=== PATIENT | female | born 2000 | race Caucasian/White ===

== ENCOUNTER 2023-08-18 23:17 | Emergency (ER) | payer BC, SELFPAY ==
[2023-08-18 23:22] VITALS: BP 120/74
[2023-08-18] MEDS: MOTRIN 600 MG PO (23:30)
[2023-08-19 02:06] VITALS: BMI 18.9
[2023-08-19 02:09] VITALS: BP 90/59
[2023-08-19 02:10] VITALS: BP 90/59
--- NOTE | 2023-08-19 02:55 | ED.GENMED ---
History of Present Illness
<EDWAR Wade - Last Filed: 08/19/23 03:02>
General
Chief Complaint: Fever
Source: patient and family
Exam Limitations: none
Time Seen by Provider: 08/19/23 02:37
Nursing documentation reviewed up to this point in time: agreed with
Travel History
Have you had any contact with someone who has COVID-19?: No
Do you have any symptoms of coronavirus? Fever > 100 degrees, chills, cough, shortness of breath, sore throat, loss of taste or smell, muscle aches, or headache?: No
History of Present Illness
History of Present Illness:
patient is a 23 y/o female with PMH of asthma presenting for fever x 3 days. patient admits that fever was noted to be at tmax earlier today at 105. Patient tried advil and over the counter cold medicine that gave temporary relief. Patient has
associated nasal congestion. patient states that she will produce yellow and blood tinged nasal discharge. Patient admits to decreased appetite. Patient admits to cough with associated sputum production. patient admits to chills. Patient denies
abdominal pain, CP. Patient admits that she went to the urgent care yesterday where she was tested for covid and flu which both were negative. Patient was started on a z pack yesterday. Patient has not found relief with the z pack. Patient admits to
sick contact with mother who was ill last week but denies any recent travel. Patients current temperature is 102.8.
Review of Systems
<EDWAR Wade - Last Filed: 08/19/23 03:02>
Review of Systems
Constitutional: Reports fever, fatigue, sleep disturbance and chills
EENT: Reports sore throat, runny nose and other (ear fullness )
Respiratory: Reports cough
ABD/GI: Reports nausea
Phy Exam
<EDWAR Wade - Last Filed: 08/19/23 03:02>
General Physical Exam
General Presentation: no apparent distress
General Skin: warm
General Habitus: normal
General Mental: alert
Course
<EDWAR Wade - Last Filed: 08/19/23 03:02>
Orders/Labs/Results
Orders:
Orders
08/18/23 23:26
Acetaminophen [Tylenol] 1,000 mg .ROUTE .STK-MED ONE
08/18/23 23:27
Acetaminophen [Tylenol] 1,000 mg PO NOW STA
08/18/23 23:30
Ibuprofen [Motrin] 600 mg .ROUTE .STK-MED ONE
Ibuprofen [Motrin] 600 mg PO NOW STA
08/19/23 03:54
Chest [CR Chest - 2 Views ] Urgent
Comment:
Reason For Exam: fever, cough
Vital Signs
Initial and Last Documented VS:
Initial Vital Signs
Temp Pulse Resp BP Pulse Ox
102.8 F H 116 22 120/74 98
08/18/23 23:22 08/18/23 23:22 08/18/23 23:22 08/18/23 23:22 08/18/23 23:22
Last Documented Vital Signs
Temp Pulse Resp BP Pulse Ox
97.8 F 80 20 91/60 98
08/19/23 03:23 08/19/23 03:15 08/19/23 03:15 08/19/23 03:00 08/19/23 02:09
<Francis Harvey DO - Last Filed: 08/19/23 04:33>
Orders/Labs/Results
Orders:
Orders
08/18/23 23:26
Acetaminophen [Tylenol] 1,000 mg .ROUTE .STK-MED ONE
08/18/23 23:27
Acetaminophen [Tylenol] 1,000 mg PO NOW STA
03/17/24 23:30
Ibuprofen [Motrin] 600 mg .ROUTE .STK-MED ONE
Ibuprofen [Motrin] 600 mg PO NOW STA
08/19/23 03:54
Chest [CR Chest - 2 Views ] Urgent
Comment:
Reason For Exam: fever, cough
Vital Signs
Initial and Last Documented VS:
Initial Vital Signs
Temp Pulse Resp BP Pulse Ox
102.8 F H 116 22 120/74 98
08/18/23 23:22 08/18/23 23:22 08/18/23 23:22 08/18/23 23:22 08/18/23 23:22
Last Documented Vital Signs
Temp Pulse Resp BP Pulse Ox
97.8 F 80 20 91/60 98
08/19/23 03:23 08/19/23 03:15 08/19/23 03:15 08/19/23 03:00 08/19/23 02:09
<EDWAR Wade - Last Filed: 08/19/23 03:02>
MDM/Problems Addressed
Differential Diagnosis Includes:
viral infection
bacterial infection
PNA
MDM/Problems Addressed:
fever
<EDWAR Wade - Last Filed: 08/19/23 03:02>
*Critical Care Note
Total Time (30-74mins, 75-104mins- exclusive of procedures): Not Applicable
ED Attending Note
<EDWAR Wade - Last Filed: 08/19/23 03:02>
-
Portions of this chart may have been created with voice recognition software.� Occasional wrong word or��sound alike� substitutions may have occurred due to the inherent limitations of voice recognition software.
<Francis Harvey DO - Last Filed: 08/19/23 04:33>
ED Attending Note
Patient seen and examined by attending physician: Yes
I performed the substantive portion of visit, reviewed & personally made and approve the management plan that is documented in note by myself or DAPHNIE.: Yes
ED Attending Note:
Pleasant 23-year-old female presents with fever. It is been present for the last 5 days. Patient states that the fever was as high as 105. She was at urgent care and started on a Z-Leonidas. She took the first days pills and has not found relief.
Patient states that her mom had similar symptoms 1 week ago. Patient had flu and COVID test which were negative. She denies chest pain. She does have a cough with associated clear sputum production. Patient was seen in conjunction with the PA
student. I have reviewed and agree with the history and treatment plan presented. On my independent physical exam, patient is awake, alert, and oriented x3, minimal acute distress. Heart is regular rate and rhythm. Lungs are clear to
auscultation bilaterally no wheezes rales or rhonchi present. Abdomen is soft and nontender.
Discharge Plan
Departure
Patient Disposition: Home (Routine Discharge)
Date of Disposition: 08/19/23
Time of Disposition: 04:31
Patient with high blood pressure during this ER visit?: No
Condition: Good
Discharge Problem:
Acute viral syndrome
Instructions: Fever, Adult (DC), Viral Syndrome (DC)
Prescriptions:
No Action
No Current Medications
0
Referrals:
Juan Merrill MD [Family Provider] -
Activity Restrictions/Additional Instructions:
It was a pleasure meeting you and taking part in your care. We hope for your continued healing and wellness.
Please read discharge instructions in their entirety. However, they are for general education and may not describe your exact diagnosis at discharge. Information on your ER visit and medical conditions were discussed with you along with appropriate
follow up information...
If indicated, please take your medications as instructed and indicated on discharge paperwork.
Please schedule a follow up appointment as directed. Call to schedule an appointment
Please return to the emergency department with ANY change in, persisting, or worsening of symptoms. If any of your symptoms do not improve, or persist, or become more severe within 6-12 hours, please return to the emergency department for further
care.
Please return to the emergency department if you develop a headache, neck pain/stiffness, fever greater than 100.4F, chest pain, shortness of breath, persistent nausea, vomiting, slurred speech, difficulty walking, numbness/tingling, weakness, signs
of infection or any other symptoms that are worrisome to you.
If you have any questions or concerns please do not hesitate to call the Hospital at or E-mail me directly at [email or web address]
Interventions
Interventions:
*Risk Screen - Suicide Last Done: 08/18/23 23:22
*General Assessment Last Done: 08/19/23 02:13
*Neglect/Abuse Screening Last Done: 08/18/23 23:22
ED- Fall Risk Assessment Last Done: 08/19/23 02:12
*ED COVID-19 Vaccine History Last Done: 08/19/23 02:07
ED- Neurological Assessment Last Done: 08/19/23 03:25
ED- Pulmonary Assessment Last Done: 08/19/23 03:25
ED-Skin Assessment Last Done: 08/19/23 03:25
[2023-08-19 03:00] VITALS: BP 91/60
== END 2023-08-19 04:50 | disposition home or self-care (01) ==
LOC: EMR 23:17
PROVIDERS: EMERGENCY PHYSICIAN Student in an Organized Health Care Education/Training Program; FAMILY PHYSICIAN Internal Medicine
DX: B34.9 Viral infection, unspecified (principal); J45.909 Unspecified asthma, uncomplicated; Z20.822 Contact with and (suspected) exposure to COVID-19
CPT/HCPCS: 99283; 71046

== ENCOUNTER 2023-08-21 18:42 | Emergency (ER) | payer BC, SELFPAY ==
[2023-08-21 18:42] VITALS: BMI 21.4
[2023-08-21 18:45] VITALS: BP 105/66
[2023-08-21 19:27] VITALS: BP 112/64
--- NOTE | 2023-08-21 19:54 | ED.GENMED ---
History of Present Illness
General
Chief Complaint: Fever
Source: patient
Exam Limitations: none
Time Seen by Provider: 08/21/23 19:13
Nursing documentation reviewed up to this point in time: agreed with
Travel History
Have you had any contact with someone who has COVID-19?: No
Do you have any symptoms of coronavirus? Fever > 100 degrees, chills, cough, shortness of breath, sore throat, loss of taste or smell, muscle aches, or headache?: No
History of Present Illness
History of Present Illness:
23 y/o F with h/o asthma
here with fever to 104-105 t max x 5 days
started about > 1 week ago with URI sxs, nasal congestion, rhinorrhea, sinus pressure
but her fever didn' start until 08/16. pt went to urgent care and was given z brian after testing neg for flu and covid
she came here on 08/17 when she was continuing with fever, after mo mcalled the PCP
pt had cxr and was given motrin and felt better so she was sent home.
she has had improvement in the nasal congestion but now has more of a cough.
she saw the pcp this week and had outpatient labs but she cannot access them. apparently blood cultures were in the mix.
today she started using her nebulizer machine which does help the cough somewhat but she has continued to have spiking fevers, last around 3;15 which was 104. she treated with motrin 400 mg
her face was flushed about 2 hours after the fever was treated
mom called the pcp and was told to come to the [facility].
they want her to be tested for mono
she has never had mono in the past
denies neck stiffness
Past History
Past History
ED Past Medical History: Asthma
ED Past Surgical History: None
Social History
Tobacco: Non-smoker
Alcohol: None
Drug: None
Personal: Single
Living: with family
Employment: Employed
Review of Systems
Review of Systems
Allergies reviewed?: Yes
All Other Systems: Not applicable
Phy Exam
Physical Exam
Physical Exam:
GENERAL: Alert , in no apparent distress, very well appearing
head: no facial swelling or tenderness;
EYE: pupils equal and reactive
NECK: Supple
ENT: b/l TM s clear, pharynx mildly erythematous but no tonsillar hypertrophy or exudates
CARDIAC: Regular rate and rhythm, no edema
LUNGS: Clear breath sounds bilaterally, no acute respiratory distress, no wheezes/rales/rhonchi, occ cough
ABDOMEN: Soft, without focal tenderness, no r/g, no cvat, normal bowel sounds
NEUROLOGICAL: Alert and oriented, no focal neuro deficits
SKIN: Warm and dry, skin intact.
MUSCULOSKELETAL: No edema, well perfused.
PSYCH: Normal and appropriate interaction.
Course
Orders/Labs/Results
Orders:
Orders
08/21/23 19:49
0.9% Sodium Chloride 1000 ml [Nss] 1,000 ml IV BOLUS
08/21/23 19:50
CR Chest - 2 Views Urgent
Comment:
Reason For Exam: cough, fever
08/21/23 19:57
COVID-19 Antigen Urgent
Source: Nasal Swab
Complete Blood Count/With Diff Urgent
Comprehensive Metabolic Panel Urgent
Lactic Acid Urgent
Monotest Urgent
Blood Culture Q30M
DALIA Source: Blood/Venous
Specimen Description:
Influenza A+B Rapid Molecular Urgent
DALIA Source: Nasal Swab
Specimen Description:
08/21/23 20:00
Rapid Strep Group A Urgent
DALIA Source: Throat/Pharynx
Specimen Description:
Date Specimen was Collected: 08/21/23
Time Specimen was Collected: 19:59
08/21/23 20:30
Blood Culture Q30M
DALIA Source: Blood/Venous
Specimen Description:
08/21/23 21:27
Dexamethasone Sod Phosphate [Decadron] 10 mg IV NOW STA
Abnormal Lab Results
08/21/23
19:57
WBC 3.6 L 10^3/uL
(4.8-10.8)
RBC 3.92 L 10^6/uL
(4.20-5.40)
Hgb 11.8 L g/dL
(12.0-16.0)
Hct 32.4 L %
(37.0-47.0)
Plt Count 109 L 10^3/uL
(130-400)
Neutrophils % 38.6 L %
(42.2-75.2)
Lymphocytes % 52.7 H %
(20.5-51.1)
Sodium 133 L mmol/L
(135-145)
Potassium 3.0 L mmol/L
(3.5-5.1)
Chloride 97 L mmol/L
(98-107)
BUN 3 L mg/dl
(7-17)
Glucose 123 H mg/dl
(70-99)
AST 338 H U/L
(14-36)
ALT 250 H U/L
(0-35)
Alkaline Phosphatase 139 H U/L
(38-126)
Monoscreen Positive A
(Negative)
08/21/23 19:57
08/21/23 19:57
Vital Signs
Initial and Last Documented VS:
Initial Vital Signs
Temp Pulse Resp BP Pulse Ox
98.0 F 96 18 105/66 96
08/21/23 18:45 08/21/23 18:45 08/21/23 18:45 08/21/23 18:45 08/21/23 18:45
Last Documented Vital Signs
Temp Pulse Resp BP Pulse Ox
98.0 F 96 18 112/64 98
08/21/23 18:45 08/21/23 18:45 08/21/23 18:45 08/21/23 19:27 08/21/23 19:30
MDM/Problems Addressed
Differential Diagnosis Includes:
MONO, BACTEREMIA, FLU, PNEUMONIA
MDM/Problems Addressed:
23 y/o F with 5 days fever
started after having URI sxs x 1 week
neg flu and covid
already had z brian
says cough is worse but treated with neb athome
last fever 104 today at 315 pm
pt is afebrile, very well appearing, no neck stiffness, lungs clear, pharynx minimall red, abdomen nontender
labs show a transaminitis, leukopenia and low plat 100 which is c/w viral syndrome
mono +
which epxplains sypmtmos
cxr clear independently reviewed by me, neg
d/c home, precautions to avoid contact sports
f/u lfts with PCP
*Critical Care Note
Total Time (30-74mins, 75-104mins- exclusive of procedures): Not Applicable
ED Attending Note
-
Portions of this chart may have been created with voice recognition software.� Occasional wrong word or��sound alike� substitutions may have occurred due to the inherent limitations of voice recognition software.
Discharge Plan
Departure
Patient Disposition: Home (Routine Discharge)
Date of Disposition: 08/21/23
Time of Disposition: 21:24
Patient with high blood pressure during this ER visit?: No
Condition: Fair
Covid-19: Negative COVID-19
Discharge Problem:
Mononucleosis
Instructions: Mononucleosis (DC)
Prescriptions:
No Action
No Current Medications
0
Referrals:
Juan Merrill MD [Family Provider] - Follow up in 5-7 days
Stand Alone Forms: Return to Work
Activity Restrictions/Additional Instructions:
YOU TESTED POSITIVE FOR MONO.
THIS IS THE REASON FOR YOUR FEVERS
YOUR BLOOD WORK REFLECTS CHANGES RELATED TO MONO - YOU HAD ELEVATED LIVER ENZYMES, LOW WHITE COUNT AND LOW PLATELETS
YOU SHOULD SEE YOUR DOCTOR NEXT WEEK
THEY WILL WANT TO RECHECK YOUR LIVER MARKERS
AVOID TYLENOL MEDICATIONS AND ALCOHOL
DRINK FLUIDS
MOTRIN FOR HEADACHES AND FEVER
AVOID CONTACT SPORTS
RETURN FOR: SEVERE WORSENING HEADAHCE, NECK STIFFNESS, VOMTING, ABODMINAL PAIN, ABDOMINAL TRAUMA, FEVER NOT RESPONDING TO MOTRIN OR ANY CONCERNS.
YOU WERE GIVEN A DOSE OF STEROIDS TO HELP WITH YOUR COUGH.
Interventions
Interventions:
*Risk Screen - Suicide Last Done: 08/21/23 18:45
*General Assessment Last Done: 08/21/23 19:18
*Neglect/Abuse Screening Last Done: 08/21/23 18:45
*ED COVID-19 Vaccine History Last Done: 08/21/23 18:45
ED- Neurological Assessment Last Done: 08/21/23 19:18
ED-Skin Assessment Last Done: 08/21/23 19:18
[2023-08-21 20:00] VITALS: BP 116/78
[2023-08-21] MEDS: NSS 1000 IV (20:07)
[2023-08-21 20:15] LABS: % Basophils 0.8 % (0-2); % Eosinophils 2.2 % (0-6); % Immature Granulocytes 0.5 % (0-0.5); % Lymphocytes 52.7 % (20.5-51.1); % Monocytes 5.2 % (1.7-9.3); % Neutrophils 38.6 % (42.2-75.2); Absolute Eosinophils 0.1 10^3/uL (0-0.7); Absolute Lymphocytes 1.9 10^3/uL (1.2-3.4); Absolute Monocytes 0.2 10^3/uL (0.1-0.6); Absolute Neutrophils 1.4 10^3/uL (1.4-6.5); Hematocrit 32.4 % (37.0-47.0); Hemoglobin 11.8 g/dL (12.0-16.0); Mean Corp Hgb Conc. 36.4 g/dL (33.0-37.0); Mean Corpuscular Hgb 30.1 pg (27.0-31.0); Mean Corpuscular Volume 82.7 fL (81.0-99.0); Nucleated Red Blood Cells % 0 %; Red Blood Cell Count 3.92 10^6/uL (4.20-5.40); Red Cell Dist. Width 12.7 % (11.5-14.5); White Blood Cell Count 3.6 10^3/uL (4.8-10.8)
[2023-08-21 20:26] LABS: Monotest Positive (Negative)
[2023-08-21 20:28] LABS: ALT (SGPT) 250 U/L (0-35); AST (SGOT) 338 U/L (14-36); Albumin 3.8 g/dl (3.5-5.0); Alkaline Phosphatase 139 U/L (38-126); Blood Urea Nitrogen 3 mg/dl (7-17); Calcium 8.4 mg/dl (8.4-10.2); Carbon Dioxide 27 mmol/L (22-30); Estimated Creatinine Clearance 87 ml/min; Glucose 123 mg/dl (70-99); Total Bilirubin 0.7 mg/dl (0.2-1.3); Total Protein 6.5 g/dl (6.3-8.2); eGFR > 60.00
[2023-08-21 20:29] LABS: COVID-19 Antigen Negative (Negative)
[2023-08-21 20:34] LABS: Chloride 97 mmol/L (98-107); Sodium 133 mmol/L (135-145)
[2023-08-21 20:47] LABS: Platelet Count 109 10^3/uL (130-400)
[2023-08-21] MEDS: DECADRON 10 MG IV (21:48)
[2023-08-21 21:57] VITALS: BP 108/78
== END 2023-08-21 22:02 | disposition home or self-care (01) ==
LOC: EMR 18:42
PROVIDERS: Physician Assistant; EMERGENCY PHYSICIAN Emergency Medicine; FAMILY PHYSICIAN Internal Medicine
DX: R50.9 Fever, unspecified (principal); J45.909 Unspecified asthma, uncomplicated
CPT/HCPCS: 99283; 96374; 96361; 71046; 80053; 83605; 85025; 86308; 87040; 87070; 87502; 87811; 87880